=== PATIENT | male | born 1970 | race Caucasian/White ===

== ENCOUNTER 2019-08-28 20:04 | Emergency (ER) | payer OTHER, SELFPAY ==
[2019-08-28 20:42] VITALS: BP 120/85; PULSE 90; RESP 18; TEMP 36.8; O2SAT 98; BMI 23.6
== END 2019-08-28 22:33 | disposition left against medical advice (07) ==
LOC: ER 09-25 09:23
PROVIDERS: Emergency Provider Emergency Medicine; Family Provider Nurse Practitioner Family
DX: Z53.21 Procedure and treatment not carried out due to patient leaving prior to being seen by health care provider (principal)
CPT/HCPCS: 99281

== ENCOUNTER 2020-07-28 07:12 | Outpatient (CLI) | payer OTHER, SELFPAY ==
--- NOTE | 2020-07-28 07:15 | USCV_ITS ---
Odalis Eid Age: 49 Gender: M : 1970 Exam Date: 07/28/2020 07:22 Ordering Phys: Alfreda Diaz Technologist: True Hassan Exam Location: [facility] [place] Indication: DIZZINESS Risk Factors: Previous Vascular Surgery: Right Brachial BP: / Left Brachial BP: / Right Left Velocity (cm/s) Spectral Plaque Velocity (cm/s) Spectral Plaque Syst/Diast Broadening Syst/Diast Broadening 73.90/ 18.70 Prox CCA 84.60 / 26.50 65.10/ 17.60 Mid CCA 88.00 / 27.30 62.80/ 19.80 Distal CCA 79.50 / 27.30 72.80/ 30.90 Prox ICA 66.70 / 23.90 84.90/ 41.90 Mid ICA 66.70 / 26.50 93.70/ 44.10 Distal ICA 60.70 / 26.50 73.90 ECA 78.60 1.27 ICA/CCA 0.76 Antegrade Vertebral Antegrade 27.80/ 10.30 cm/s 32.20/ 13.10 cm/s Tri Subclavian Tri 82.00 136.7 0 CONCLUSIONS Right ICA stenosis <50%. Left ICA stenosis <50%. Normal antegrade Doppler flow noted in the right vertebral artery. Normal antegrade Doppler flow noted in the left vertebral artery. Arron Owens MD (Electronically Signed) Final Date: 28 July 2020 16:50 S
== END 2020-07-28 07:13 | disposition home or self-care (01) ==
PROVIDERS: PCP Nurse Practitioner Family; Visit Provider Otolaryngology
DX: R42 Dizziness and giddiness (principal); I65.23 Occlusion and stenosis of bilateral carotid arteries
CPT/HCPCS: 93880

== ENCOUNTER 2020-08-02 00:48 | Emergency (ER) | payer OTHER, SELFPAY ==
[2020-08-02 00:58] VITALS: BP 130/64; PULSE 93; RESP 18; TEMP 36.8; O2SAT 98; BMI 24.0
--- NOTE | 2020-08-02 01:00 | XRR_ITS ---
PROCEDURE INFORMATION: Exam: XR Left Hand Exam date and time: 08/02/2020 1:12 AM Age: 49 years old Clinical indication: Injury or trauma; Other: [employer] vs. 2nd left digit; Laceration; Index finger; Additional info: Injury/lac to 2nd digit TECHNIQUE: Imaging protocol: XR Left hand. Views: 3 or more views. COMPARISON: No relevant prior studies available. FINDINGS: Bones/joints: Normal. Soft tissues: Punctate radiodensity in the soft tissues overlying the proximal ulnar aspect of the 3rd proximal digit may reflect a small foreign body. XR/XR hand LT min 3V* [id number] IMPRESSION: 1. Negative for fracture or dislocation. 2. Punctate radiodensity in the soft tissues overlying the proximal ulnar aspect of the 3rd proximal digit may reflect a small foreign body.
--- NOTE | 2020-08-02 01:00 | W.ED.WOUNDLC ---
HPI - Wound/Laceration General: Chief Complaint: Wound/Laceration Stated Complaint: lt hand finger lac Time Seen by Provider: 08/02/20 00:54 History of Present Illness: HPI narrative: Patient is a 49-year-old male who comes to the ED with laceration on left index finger. Patient says injury occurred just prior to arrival. He says he was working at home and using a saw and it accidentally cut left index finger. laceration is located close to PIP joint on palmar side. He controlled bleeding while at home and he is in minimal pain. He is able to bend his left index finger normally. He had his last tetanus shot within the past couple years. Associated symptoms: Denies chills, fever(s), nausea or vomiting Review of Systems Const: Denies: fever(s), chills or fatigue Eyes: Denies: change in vision or eye discomfort ENMT: Denies: throat pain, odynophagia, nasal discharge or nasal congestion Card: Denies: chest pain, palpitations, edema, swelling of feet/ankles, dyspnea on exertion or orthopnea Resp: Denies: dyspnea, productive cough or non-productive cough GI: Denies: abdominal pain, nausea, vomiting, diarrhea, constipation or hematochezia : Denies: flank pain, difficulty urinating, dysuria or hematuria Musc: Denies: neck pain, back pain or extremity swelling Skin/Breast: Reports: new lesions (Laceration to left index finger.); Denies: rash Neuro: Denies: headache(s), numbness in extremities or weakness in extremities [facility] ED PFSH: Social History Smoking and tobacco status: current every day smoker Physical Exam Const: COMMON NORMALS: no acute distress, patient oriented x3, healthy appearing and alert GENERAL APPEARANCE: cooperative and comfortable HENMT: COMMON NORMALS: normocephalic HEAD & SCALP: normocephalic MOUTH: Normal oral and palatal mucosa present THROAT: posterior oropharynx normal and uvula midline Neck/C-Spine: COMMON NORMALS: supple GENERAL: Yes normal visual inspection Resp: COMMON NORMALS: normal respiratory effort, No retractions, No use of accessory muscles and clear to auscultation bilaterally AUSCULTATION: clear to auscultation bilaterally Cardio: COMMON NORMALS: regular rate, regular rhythm, S1 normal heart sound present, S2 normal heart sound present, No gallops present (Cardio), No clicks present (Cardio), No murmurs present (Cardio) and Peripheral pulses 2+ throughout RATE: regular rate RHYTHM: regular rhythm HEART SOUNDS: S1 normal heart sound present and S2 normal heart sound present PERIPHERAL PULSES: Peripheral pulses 2+ throughout GI: COMMON NORMALS: Normal to inspection, nondistended, normoactive bowel sounds present, Soft to palpation, non-tender and no masses PALPATION: Yes Soft to palpation : COMMON NORMALS: Yes no CVA tenderness BLADDER/KIDNEY EXAM: Yes no CVA tenderness Back/Pelvis: COMMON NORMALS: no CVA tenderness Extremity: NARRATIVE EXTREMITY EXAM: Laceration to index finger and laceration details outlined in skin section of exam findings. Patient has full range of motion of left index finger. GENERAL: Yes normal exam except as noted Neuro: COMMON NORMALS: patient oriented x3 and moves all extremities SENSORIUM/ORIENTATION: Yes alert Skin: GENERAL SKIN EXAM: dry skin TRAUMA: laceration (Patient has 1 cm superficial linear laceration to left index finger. Lacer) linear, superficial, motor nerve function intact and sensation intact; not actively bleeding and not contaminated Procedures Laceration Laceration 1: Site: hand (left index finger) Side (If applicable): left Size (cm): 1 Description: linear and clean Depth: simple, single layer Local Anesthetic: lidocaine 1% Amount of anesthesia used (mL): 10 Pre-repair: irrigated extensively (With normal saline and cleaned with CHG swab.) Skin layer closed with: nylon and other (Dermabond was also used to close laceration.) Size (cm): 4-0 Number of sutures: 2 Technique: simple, interrupted Course Vital Signs: Vital signs: Vital Signs Temperature 98.3 F 08/02/20 00:58 Pulse Rate 94 08/02/20 02:05 Respiratory Rate 16 08/02/20 02:05 Blood Pressure 115/85 08/02/20 02:05 Pulse Oximetry 96 08/02/20 02:05 MDM - Wound/Laceration MDM Narrative: Medical decision making narrative: Patient is a 49-year-old male comes to the ED with laceration to left index finger. Laceration is superficial and approximately 1 cm in length. Patient has full range of motion with finger. X-ray of left hand showed no acute fractures or foreign body seen. He is also up-to-date on his tetanus. Laceration was irrigated extensively with normal saline and cleaned with CHG swab. Local lidocaine 1% used. Sutures and Dermabond were placed to help close wound. Bandage was then placed on patient's finger and he was put in a finger splint to keep finger straight to allow for better healing over the next 48 hours. He was sent home with a prescription for Keflex. Return to ED precautions given. He was instructed on how to care for wound. Have sutures removed in approximately 10 days at PCP, urgent care or ED. Patient understood and agreed with plan. Imaging Data^: Xray Ortho: Attestation: I personally reviewed and interpreted this imaging study as follows: My impression: Left hand x-ray showed no acute fractures or foreign body seen. Discharge Plan Discharge Patient Disposition: Home Clinical Impression: Finger laceration Qualifiers: Encounter type: initial encounter Finger: index finger Damage to nail status: without damage Foreign body presence: without foreign body Laterality: left Qualified Code(s): S61.211A - Laceration without foreign body of left index finger without damage to nail, initial encounter Condition: Stable Prescriptions: New cephalexin 500 mg capsule 500 mg PO TID 5 Days Qty: 15 RF: 0 No Action tamsulosin 0.4 mg Capsule 0.4 mg PO DAILY RF: 0 Discharge Orders: Discharge ED (Routine); Ordered 08/02/20 Ordered By: Julio Draper Referrals: Maegan Shaw APN [Primary Care Provider] - Discharge Diet: Regular Discharge Activity: Limit activity as instructed Patient Instructions: Finger Laceration (ED) Activity Restrictions/Additional Instructions: Take full course of antibiotics as prescribed. Keep laceration site clean and dry for the next 48 hours. Wear finger splint for 48 hours to keep finger straight to allow for better healing and wound closure. Then after that you can clean and re-bandage daily. Watch for signs of infection such as redness, warmth, increased tenderness and puslike drainage. If you see the signs of infection return to the ED, urgent care or PCP for reevaluation. call your PCP to schedule a follow-up appointment for reevaluation and suture removal in about 10 days. Continue taking all home meds. Follow discharge plans as discussed. You can return to the ED if symptoms worsen. Coding Level of Care Code ED Fruit Dryer for Ketan Fwd Exam Comprehensive
[2020-08-02 01:03] VITALS: BP 116/79; PULSE 98; RESP 18; O2SAT 97
--- NOTE | 2020-08-02 01:59 | PC.NURSE ---
Dressing applied to sutured finger- finger splint applied
[2020-08-02] MEDS: HYDROcodone-acetaminophen 5-325 mg Tablet 2 TAB PO (02:04)
[2020-08-02 02:05] VITALS: BP 115/85; PULSE 94; RESP 16; O2SAT 96
== END 2020-08-02 02:11 | disposition home or self-care (01) ==
PROVIDERS: Emergency Provider Physician Assistant; PCP Nurse Practitioner Family
DX: S61.211A Laceration without foreign body of left index finger without damage to nail, initial encounter (principal); F17.210 Nicotine dependence, cigarettes, uncomplicated; W27.0XXA Contact with workbench tool, initial encounter
CPT/HCPCS: 12001; 12345; 29130; 73130; 99281; 99283

== ENCOUNTER 2020-08-17 09:08 | Outpatient (CLI) | payer OTHER, SELFPAY ==
--- NOTE | 2020-08-17 09:00 | XRR_ITS ---
PROCEDURE INFORMATION: Exam: XR Abdomen, 1 View Exam date and time: 08/17/2020 9:24 AM Age: 50 years old Clinical indication: Condition or disease; Kidney or ureter condition; Calculus (stone) in ureter; Prior surgery; Surgery type: Appy; Additional info: Ureteral calculus followup TECHNIQUE: Imaging protocol: XR of the abdomen. Views: Frontal supine view of the abdomen. 1 View. COMPARISON: CR XR KUB [id number] 04/17/2017 12:13 PM FINDINGS: Gastrointestinal tract: Bowel gas pattern is nonspecific. No mass effect upon the bowel loops. Distal rectal gas. Scattered loops of air filled small bowel none of which are dilated. Bones/joints: No acute process within the osseous structures of the spine or pelvis. Other findings: No appreciable calcifications XR/XR KUB [id number] IMPRESSION: Bowel gas pattern is nonspecific.
== END 2020-08-17 09:09 | disposition home or self-care (01) ==
PROVIDERS: PCP Nurse Practitioner Family; Visit Provider Urology
DX: N20.1 Calculus of ureter (principal)
CPT/HCPCS: 74018; 81003

== ENCOUNTER → 2020-08-18 17:33 | Outpatient (BNVA) | payer OTHER, SELFPAY | PROVIDERS: PCP Nurse Practitioner Family; Visit Provider Urology | DX: N20.1 Calculus of ureter (principal); N40.1 Benign prostatic hyperplasia with lower urinary tract symptoms; N20.9 Urinary calculus, unspecified; Z12.5 Encounter for screening for malignant neoplasm of prostate | CPT/HCPCS: G0103 ==

== ENCOUNTER 2020-08-25 10:06 | Outpatient (CLI) | payer OTHER, SELFPAY ==
--- NOTE | 2020-08-25 10:09 | MR_ITS ---
WS: [id number] MRI HEAD WITH CONTRAST WITH ATTENTION TO THE INTERNAL AUDITORY CANALS TECHNIQUE: Sagittal T1, T2 axial, T2 axial flair, axial susceptibility weighted imaging, axial diffus ion weighted images, and coronal T2 images were obtained. Pre and post T1 axial and post T1 coronal i mages. ADC and FSPGR images. Post gadolinium images with attention to the internal auditory canals. A xial fiesta imaging. CLINICAL INFORMATION: DIZZINESS AND GIDDINESS COMPARISON: None. FINDINGS: No evidence of restricted diffusion to suggest acute ischemia. Ventricular system and basal cisterns are patent. No suspicious intracranial signal abnormalities. Minimal small vessel changes. Mild paren chymal volume loss. Normal posterior fossa. Normal vascular flow voids at the skull base. No extra-ax ial fluid collections. No evidence of mass or mass effect. Mild mucosal thickening in the paranasal s inuses. Mastoid air cells are well aerated. No hemosiderin on susceptibly weighted images. Proximal 7th and 8th cranial nerves are normal in appe arance. Normal trigeminal nerve root entry zones. No enhancing IAC or CP angle mass. Normal optic chi asm and pituitary infundibulum. Dural venous sinuses are patent. No abnormal intracranial enhancement . MR/MR iac's wo/w con* [id number] IMPRESSION: 1. No evidence of restricted diffusion to suggest acute ischemia. 2. No suspicious intracranial signal abnormalities. Minimal small vessel aguilar es. 3. Paranasal sinuses and mastoid air cells are well aerated. Mild mucosal thic kening in the paranasal sinuses. 4. Proximal 7th and 8th cranial nerves are normal in appearance. No evidence o f enhancing IAC or CP angle mass. 5. Normal trigeminal nerve root entry zone. 6. No other significant findings.
== END 2020-08-25 10:07 | disposition home or self-care (01) ==
PROVIDERS: PCP Nurse Practitioner Family; Visit Provider Specialist
DX: R42 Dizziness and giddiness (principal)
CPT/HCPCS: 70553; A9579

== ENCOUNTER 2021-09-24 10:25 | Outpatient (CLI) | payer OTHER, SELFPAY ==
--- NOTE | 2021-09-24 10:35 | XR_ITS ---
WS: [id number] FOOT RIGHT TECHNIQUE: 3 views of the right foot CLINICAL INFORMATION: PAIN R FOOT COMPARISON: None. FINDINGS: Normal anatomic alignment. Slightly comminuted fracture involving the second distal phalanx distal tu ft. This appears new since 2005. Recommend Correlation with area of injury. No other visualized fract ures. Normal metatarsals. Normal MCP joints. Base of the fifth metatarsal is normal. Normal talus and calcaneus. XR/XR foot RT min 3V* [id number] IMPRESSION: 1. Slightly comminuted fracture involving the second distal phalanx distal tuf t. This appears new since 2005. 2. Recommend Correlation with area of injury. 3. No other visualized fractures.
== END 2021-09-24 10:26 | disposition home or self-care (01) ==
LOC: RAD 10:29
PROVIDERS: PCP Nurse Practitioner Family; Visit Provider Nurse Practitioner Family
DX: S92.911A Unspecified fracture of right toe(s), initial encounter for closed fracture (principal); X58.XXXA Exposure to other specified factors, initial encounter
CPT/HCPCS: 73630

== ENCOUNTER 2022-08-15 15:47 | Outpatient (CLI) | payer OTHER, SELFPAY ==
[2022-08-15 17:23] LABS: Prostate Specific AG Urology 2.01 ng/mL (0-4)
== END 2022-08-15 15:48 | disposition home or self-care (01) ==
PROVIDERS: PCP Nurse Practitioner Family; Visit Provider Urology
DX: Z12.5 Encounter for screening for malignant neoplasm of prostate (principal)
CPT/HCPCS: 36415; 84153

== ENCOUNTER → 2022-08-18 09:35 | Outpatient (BNVA) | payer OTHER, SELFPAY | PROVIDERS: PCP Nurse Practitioner Family; Visit Provider Urology | DX: Z12.5 Encounter for screening for malignant neoplasm of prostate (principal); N20.9 Urinary calculus, unspecified; N40.1 Benign prostatic hyperplasia with lower urinary tract symptoms | CPT/HCPCS: 74018; 81003 ==

== ENCOUNTER → 2023-07-31 14:45 | Outpatient (BNVA) | payer OTHER, SELFPAY | PROVIDERS: PCP Nurse Practitioner Family; Visit Provider Internal Medicine Cardiovascular Disease | DX: R42 Dizziness and giddiness (principal) | CPT/HCPCS: 93005 ==